=== PATIENT | male | born 1990 | race Caucasian/White ===

== ENCOUNTER → 2019-12-19 | Outpatient (CLI) | payer BC, OTHER | END | disposition home or self-care (01) | LOC: LAB 09:21 | PROVIDERS: ATTEND Nurse Practitioner Family | DX: Z20.828 Contact with and (suspected) exposure to other viral communicable diseases (principal) | CPT/HCPCS: C9803; U0003 ==

== ENCOUNTER → 2020-01-23 | Outpatient (CLI) | payer BC ==
[2020-01-23 08:26] LABS: Basophils # (auto) 0.1 10 ^3/uL (0-0.2); Basophils % (auto) 1.1 % (0.0-2.0); Eosinophils # (auto) 0.1 10 ^3/uL (0-0.8); Eosinophils % (auto) 1.4 % (0.0-7.0); Hematocrit 45.6 % (41.0-53.0); Lymphocytes # (auto) 1.5 10 ^3/uL (0.4-5.4); Lymphocytes % (auto) 23.5 % (10.0-50.0); Mean Corpuscular Hemoglobin 31.3 pg (28.0-32.0); Mean Corpuscular Hgb Conc. 35.2 g/dL (32.0-36.0); Monocytes # (auto) 0.6 10 ^3/uL (0-1.3); Monocytes % (auto) 10.2 % (0.0-12.0); Neutrophils % (auto) 63.8 % (37.0-80.0); Nucleated Red Blood Cells % 0.1 %; Platelet Count (auto) 264 10^3/uL (140-450); Red Blood Cells 5.12 10^6/uL (4.5-5.90); Red Cell Distribution Width 12.5 % (11.8-14.3); White Blood Cell 6.3 10^3/uL (4.4-10.8)
[2020-01-23 09:27] LABS: Urine Bacteria NONE SEEN /hpf (None Seen); Urine Blood Negative /uL (Negative); Urine Mucus FEW (None Seen); Urine Specific Gravity 1.029 (1.001-1.035); Urine WBC <1 /hpf (0 - 3)
[2020-01-23 09:33] LABS: Albumin 4.1 g/dL (3.4-5.0); Calcium 8.9 mg/dL (8.5-10.1); Potassium 3.9 mmol/L (3.5-5.1)
[2020-01-23 09:39] LABS: BUN/Creatinine Ratio 25.3; Bilirubin, Total 0.7 mg/dL (0.2-1.0); Total Protein 7.5 g/dL (6.4-8.2)
== END | disposition home or self-care (01) ==
LOC: LAB 08:07
PROVIDERS: ATTEND Internal Medicine
DX: I10 Essential (primary) hypertension (principal); R06.00 Dyspnea, unspecified
CPT/HCPCS: 36415; 80053; 80061; 81001; 83036; 84439; 84443; 85025; 85379; 85652

== ENCOUNTER → 2020-04-09 | Outpatient (CLI) | payer OTHER | END | disposition home or self-care (01) | LOC: LAB 07:54 | PROVIDERS: ATTEND Nurse Practitioner Family | DX: Z20.828 Contact with and (suspected) exposure to other viral communicable diseases (principal) ==

== ENCOUNTER → 2020-09-24 | Outpatient (CLI) | payer BC ==
[2020-09-24 08:56] LABS: Albumin 3.6 g/dL (3.4-5.0); Calcium 8.5 mg/dL (8.5-10.1); Potassium 3.8 mmol/L (3.5-5.1)
[2020-09-24 09:11] LABS: BUN/Creatinine Ratio 23.8; Bilirubin, Total 0.5 mg/dL (0.2-1.0)
== END | disposition home or self-care (01) ==
LOC: LAB 07:47
PROVIDERS: ATTEND Internal Medicine
DX: M25.561 Pain in right knee (principal)
CPT/HCPCS: 36415; 80053; 80061; 82550; 84550; 86200; 86431

== ENCOUNTER → 2024-07-01 | Outpatient (CLI) | payer BC ==
[~2024-07-01] MED LIST: AMOX500T86 PO; IBUP-1456 PO
[2024-07-01 10:08] LABS: Alkaline Phosphatase 80 U/L (46-116); Anion Gap 6 (5-15); Calcium 9.5 mg/dL (8.7-10.4); Carbon Dioxide 27 mmol/L (20-31); Chloride 106 mmol/L (98-107); Potassium 4.1 mmol/L (3.5-5.1); Sodium 139 mmol/L (136-145)
[2024-07-01 10:10] LABS: BUN/Creatinine Ratio 14.3 (10.0-20.0); Blood Urea Nitrogen 14 mg/dL (9-23)
[2024-07-01 10:11] LABS: Total Protein 7.1 g/dL (5.7-8.2)
[2024-07-01 10:12] LABS: Albumin 4.7 g/dL (3.2-4.8); Aspartate Aminotransferase 32 U/L (13-40); Basophils # (auto) 0.1 10 ^3/uL (0-0.2); Basophils % (auto) 1.3 % (0.0-2.0); Bilirubin, Total 0.8 mg/dL (0.2-1.0); Cholesterol 181 mg/dL (< 200); Eosinophils # (auto) 0.1 10 ^3/uL (0-0.8); Eosinophils % (auto) 1.8 % (0.0-7.0); Hematocrit 42.3 % (41.0-53.0); Hemoglobin 15.3 g/dL (13.5-17.5); Lymphocytes # (auto) 1.2 10 ^3/uL (0.4-5.4); Mean Corpuscular Hemoglobin 31.6 pg (28.0-32.0); Mean Corpuscular Hgb Conc. 36.1 g/dL (32.0-36.0); Mean Corpuscular Volume 87.4 fL (80.0-100.0); Monocytes # (auto) 0.6 10 ^3/uL (0-1.3); Monocytes % (auto) 9.9 % (0.0-12.0); Neutrophils # (auto) 3.9 10 ^3/uL (1.6-8.6); Nucleated Red Blood Cells % 0.2 %; Platelet Count (auto) 271 10^3/uL (140-450); Red Blood Cells 4.84 10^6/uL (4.5-5.90); Red Cell Distribution Width 13.2 % (11.8-14.3); White Blood Cell 5.9 10^3/uL (4.4-10.8)
[2024-07-01 10:15] LABS: INR 0.97 (0.9-1.15); Prothrombin Time 10.3 sec (9.3-11.8)
[2024-07-01 10:24] LABS: Erythrocyte Sedimentation Rate 8 mm/hr (0-20)
[2024-07-01 10:36] LABS: Alanine Aminotransferase 60 U/L (7-40); Glucose 125 mg/dL (74-106); HDL Cholesterol 37 mg/dL (40-59); LDL Cholesterol 125 mg/dL (< 100); Triglycerides 241 mg/dL (< 150)
== END | disposition home or self-care (01) ==
LOC: LAB 09:11
PROVIDERS: ATTEND Internal Medicine
DX: I10 Essential (primary) hypertension (principal); K76.0 Fatty (change of) liver, not elsewhere classified; Z68.36 Body mass index [BMI] 36.0-36.9, adult
CPT/HCPCS: 36415; 80053; 80061; 83036; 84439; 84443; 85025; 85610; 85652

== ENCOUNTER 2024-12-03 08:03 | Day surgery (SDC) | payer BC ==
[~2024-12-03] VITALS: Ht 190.5 cm; Wt 133.8 kg
[~2024-12-03 08:03] MED LIST changes: -AMOX500T86 PO; +HYDROmorphone HCL 2 MG/ML VL/or syr IV PRN; -IBUP-1456 PO; +KETOROLAC TROMETH 30 MG/ML 1ML VIAL IV ONE; +LOSA-535 PO; +METO-6 PO; +METOCLOPRAMIDE HCL 5MG/ml INJ 2ml VIAL IV ONE; +MORPHINE SULFATE 4 MG/ML SYR/VIAL IV PRN; +MORPHINE SULFATE INJ 2 MG/ml SYRG IV PRN
[2024-12-03] MEDS ORDERED: fentaNYL CITRATE 100 MCG/2 ML VL ONE (08:10)
[2024-12-03] MEDS ORDERED: LIDOCAINE HCL 2% TOP JELLY 5ML TOP ONE (08:11)
[2024-12-03] MEDS ORDERED: HYDROmorphone HCL 2 MG/ML VL/or syr ONE (08:11)
[2024-12-03] MEDS ORDERED: ROCURONIUM 10MG/ML 10ML VIAL IV ONE (08:11)
[2024-12-03] MEDS ORDERED: ONDANSETRON HCL 4 MG/2 ML VIAL ONE (08:11)
[2024-12-03] MEDS ORDERED: SODIUM CHLORIDE LOCK 10 ML ONE (08:11)
[2024-12-03] MEDS ORDERED: KETAMINE 50mg/ML 10ml Vial 10 ML ONE (08:11)
[2024-12-03] MEDS ORDERED: LIDOCAINE 1% INJ PF 5ML AMP ONE (08:11)
[2024-12-03] MEDS ORDERED: MIDAZOLAM HCL 2MG/2ML 2ml VIAL (1mg/ml) ONE (08:11)
[2024-12-03] MEDS ORDERED: PROPOFOL 10 MG/ML 20 ML IV ONE (08:11)
[2024-12-03] MEDS: BUPIVACAINE 0.5% P/F INJ 10 ML VIAL ONE (10:04)
--- NOTE | 2024-12-03 10:20 | DVHOP2 ---
Operative Report - 2 Report Details Date: 12/03/24 Preop Diagnosis: Left knee soft tissue mass Postop Diagnosis: Left left knee soft tissue mass/ganglion cyst Surgeon: Ranulfo Yanes MD Peer Support Specialist: Gabo SCHAFFER Anesthesiologist: Liban Anesthesia: General, Local Consent: The patient was informed of the risks and benefits of the procedure. These include but are not limited to complications of anesthesia, postoperative infection, incomplete relief of symptoms, recurrence of symptoms, damage to blood vessels, nerves and tendons, deep venous thrombosis, pulmonary embolism and possible need for repeat surgery in the future. Complications: None Estimated Blood Loss: Less than 5 cc Fluids: See anesthesia record Findings: Patient had a gelatinous containing cyst just beneath the IT band at the lateral joint line. It did appear to communicate with the joint. Indications for Surgery: Left knee pain which has persisted despite nonoperative management and MRI confirmed lateral knee mass Name of Procedure Performed Left knee soft tissue mass excision Procedure Details Procedure Details: Patient was brought to the operating room and placed on the table in supine position. Patient received general anesthetic. Patient received IV Ancef. Tourniquet was applied to the left thigh. Left lower extremity was shaved prepped and draped in sterile fashion. Surgical time-out was performed verifying patient, laterality, and procedure. Extremity was elevated, exsanguinated with Esmarch and tourniquet inflated to 250 mm Hg. Longitudinal incision was made in line with the IT band at the lateral joint line. Subcutaneous dissection was performed with scissors in spreading fashion. I then incised the fascia and dissected to identify the cyst I carefully dissected around the cyst and excised it with scissors. Cyst was sent to pathology for examination. I cauterized the base with Bovie. The base of the cyst in the IT band were closed with 0 Vicryl in interrupted fashion. SubQ was closed with 2-0 Vicryl and skin with roxy. I did inject 15 cc of 0.5% Marcaine prior to closure. For perioperative analgesia. Wound dressed sterilely and tourniquet released. Patient tolerated the procedure well was brought to recovery room in stable condition. Specimen: Soft tissue mass to pathology Condition Stable Disposition Home RANULFO YANES MD Dec 03, 2024 10:20
[2024-12-03 10:22] VITALS: PULSE 92; RESP 11; TEMP 99.1; O2SAT 96
[2024-12-03 10:30] VITALS: PULSE 96; RESP 22; O2SAT 97
[2024-12-03] MEDS: ceFAZolin 2 GM/D5W50ml 50 ML IV ONE (11:18)
[2024-12-03 11:30] VITALS: O2SAT 94
[2024-12-03 11:37] VITALS: BP 126/77; PULSE 82; RESP 12; O2SAT 96
== END 2024-12-03 12:20 | disposition home or self-care (01) ==
LOC: SUR 08:03 → EDUNIT# 09:15 → SUR 12:20
PROVIDERS: ATTEND Orthopaedic Surgery
DX: M67.462 Ganglion, left knee (principal); M25.862 Other specified joint disorders, left knee; R22.42 Localized swelling, mass and lump, left lower limb; I10 Essential (primary) hypertension; E66.9 Obesity, unspecified; Z79.899 Other long term (current) drug therapy; Z98.890 Other specified postprocedural states
CPT/HCPCS: 27328; 88305; J0690; J1171; J2250; J2405; J2704; J3010; J3490